=== PATIENT | female | born 1965 | race Caucasian/White ===

== ENCOUNTER 2018-05-05 19:18 | Emergency (ER) | payer OTHER ==
[~2018-05-05] VITALS: Ht 167.6 cm; Wt 82.1 kg
[~2018-05-05 19:18] MED LIST: BACTRIM DS TAB1 EACH PO; CLARITIN10 MG PO; LEVAQUIN 750 M750 MG PO; NOHOMEMEDICATIONS; NORCO 5-325 TA1 EACH PO
[2018-05-05] MEDS ORDERED: POLYMYXIN B/TMP10 ML OPHTHALMIC (19:48)
[2018-05-05 19:58] VITALS: BP 131/72
== END 2018-05-05 20:00 | disposition home or self-care (01) ==
LOC: M.ERS 19:18
DX: H01.001 Unspecified blepharitis right upper eyelid (principal); Z88.6 Allergy status to analgesic agent; Z88.0 Allergy status to penicillin

== ENCOUNTER 2018-06-06 21:32 | Emergency (ER) | payer OTHER ==
[~2018-06-06] VITALS: Ht 167.6 cm; Wt 83.0 kg
[~2018-06-06 21:32] MED LIST changes: +POLYMYXIN B/TMP10 ML OPHTHALMIC
[2018-06-06 22:08] LABS: ABSOLUTE EOSINOPHILS 0.1 thou/uL (0.0-0.7); ABSOLUTE LYMPHOCYTES 2.2 thou/uL (0.8-5.3); ABSOLUTE MONOCYTES 0.6 thou/uL (0.0-1.2); ABSOLUTE NEUTROPHILS 3.1 thou/uL (1.6-8.1); BASOPHILS 0.7 %; EOSINOPHILS 2.2 %; HEMATOCRIT 45.2 % (37.0-47.0); HEMOGLOBIN 15.3 gm/dL (12.0-15.0); LYMPHOCYTES 36.5 %; MCH 31.3 pg (26.0-34.0); MCHC 33.8 g/dL (28.0-37.0); MCV 92.4 fL (80.0-100.0); MONOCYTES 9.3 %; MPV 7.4 fl. (7.2-11.1); NUCLEATED RBCS 0 /100WBC; PLATELET COUNT* 218 thou/uL (150-400); POLYS 51.3 %; RBC 4.89 mil/uL (4.20-5.00); RDW-CV 13.5 % (10.5-14.5); WBC 6.1 thou/uL (4.0-11.0)
[2018-06-06 22:12] LABS: ANION GAP 8 mmol/L (7-16); BUN 14 mg/dL (7-18); CALCIUM 8.5 mg/dL (8.5-10.1); CHLORIDE 105 mmol/L (98-107); CO2 25 mmol/L (21-32); CREATININE 0.9 mg/dL (0.6-1.3); GLUCOSE 121 mg/dL (70-99); POTASSIUM 3.5 mmol/L (3.5-5.1); SODIUM 138 mmol/L (136-145)
[2018-06-06 22:19] LABS: ALBUMIN 3.4 g/dL (3.4-5.0); ALKALINE PHOSPHATASE 63 U/L (46-116); LIPASE 244 U/L (73-393); SGOT 17 U/L (15-37); SGPT 30 U/L (30-65); TOTAL BILIRUBIN 0.3 mg/dL (<0.1-1.0); TOTAL PROTEIN 7.4 g/dL (6.4-8.2); TROPONIN-I LEVEL <0.06 ng/mL (<0.06)
[2018-06-06 23:09] LABS: URINE BILIRUBIN NEGATIVE (Negative); URINE BLOOD NEGATIVE (Negative); URINE CLARITY CLEAR; URINE COLOR YELLOW; URINE GLUCOSE-RANDOM NEGATIVE (Negative); URINE KETONES NEGATIVE (Negative); URINE LEUKOCYTES-REFLEX NEGATIVE (Negative); URINE NITRITE-REFLEX NEGATIVE (Negative); URINE PROTEIN NEGATIVE (Negative); URINE SPECIFIC GRAVITY >= 1.030 (1.005-1.030); URINE UROBILINOGEN 0.2 E.U./dl (0.2-1.0)
[2018-06-06] MEDS ORDERED: ZOFRAN ODT4 MG PO (23:27)
[2018-06-06 23:39] VITALS: BP 147/66
--- NOTE | 2018-06-07 15:06 | EKG ---
[place] [address] ELECTROCARDIOGRAM REPORT Name: MAHENDRA SMILEY Room: [facility]#: [id number] Admission: 06/06/18 Attend Phys: Discharge: 06/06/18 Date of : 61 Report #: [id number] THIS REPORT FOR: //name// [facility] ED Test Date: 2018-06-06 Test Time: 22:08:35 Pat Name: MAHENDRA SMILEY Department: Room: Gender: F Movie Actor: FABY : 1965 Requested By: Raine Betancourt Order Number: [id number] MD: Gallito Polo Measurements Intervals Dix Rate: 81 P: 23 [place]: 139 QRS: -23 QRSD: 87 T: -5 QT: 404 QTc: 469 Interpretive Statements Sinus rhythm Left ventricular hypertrophy Borderline T abnormalities, inferior leads Compared to ECG 09/19/2016 19:42:42 T-wave abnormality now present Q waves no longer present Electronically Signed On 06-07-2018 15:05:54 CDT by Gallito Polo [email or web address] <ELECTRONICALLY SIGNED> By: Gallito Polo MD, [facility] 06/07/18 1505 07 07 Gallito Polo MD, [facility] /EPI
== END 2018-06-06 23:40 | disposition home or self-care (01) ==
LOC: M.ERS 21:32
PROVIDERS: Emergency Medicine
DX: R11.2 Nausea with vomiting, unspecified (principal); F17.210 Nicotine dependence, cigarettes, uncomplicated; Z88.0 Allergy status to penicillin; Z88.8 Allergy status to other drugs, medicaments and biological substances

== ENCOUNTER 2019-03-17 06:02 | Emergency (ER) | payer OTHER ==
[~2019-03-17] VITALS: Ht 167.6 cm; Wt 90.7 kg
[~2019-03-17 06:02] MED LIST changes: +ZOFRAN ODT4 MG PO
[2019-03-17 06:10] VITALS: BP 154/91
[2019-03-17] MEDS ORDERED: MEDROLDOSEPACK PO (06:44)
[2019-03-17] MEDS ORDERED: HYDROCODON-ACE1 EAC7 PO (06:44)
== END 2019-03-17 06:55 | disposition home or self-care (01) ==
LOC: M.ERS 06:02
DX: M25.551 Pain in right hip (principal); F17.210 Nicotine dependence, cigarettes, uncomplicated; Z98.890 Other specified postprocedural states; Z88.8 Allergy status to other drugs, medicaments and biological substances; Z88.0 Allergy status to penicillin

== ENCOUNTER 2019-06-19 20:25 | Emergency (ER) | payer OTHER ==
[~2019-06-19] VITALS: Ht 167.6 cm; Wt 90.7 kg
[~2019-06-19 20:25] MED LIST changes: +HYDROCODON-ACE1 EAC7 PO; +MEDROLDOSEPACK PO
[2019-06-19] MEDS ORDERED: ZPAK PO (20:51)
[2019-06-19] MEDS ORDERED: VENTOLIN HFA 1818 GM INH (20:51)
[2019-06-19] MEDS ORDERED: PREDNISONE50 MG PO (20:51)
[2019-06-19 21:29] VITALS: BP 151/78
== END 2019-06-19 21:30 | disposition home or self-care (01) ==
LOC: M.ERS 20:25
DX: R05 Cough (principal); F17.200 Nicotine dependence, unspecified, uncomplicated; Z88.6 Allergy status to analgesic agent; Z88.0 Allergy status to penicillin

== ENCOUNTER 2019-12-24 08:42 | Emergency (ER) | payer OTHER ==
[~2019-12-24] VITALS: Ht 167.6 cm; Wt 99.8 kg
[~2019-12-24 08:42] MED LIST changes: +PREDNISONE50 MG PO; +VENTOLIN HFA 1818 GM INH; +ZPAK PO
[2019-12-24 09:17] LABS: INFLUENZA A ANTIGEN Negative (Negative); INFLUENZA B ANTIGEN Negative (Negative)
[2019-12-24 09:47] VITALS: BP 158/101
== END 2019-12-24 09:48 | disposition home or self-care (01) ==
LOC: M.ERS 08:42
PROVIDERS: Family Medicine
DX: B34.9 Viral infection, unspecified (principal); R51 Headache; Z98.51 Tubal ligation status; Z88.0 Allergy status to penicillin; Z88.8 Allergy status to other drugs, medicaments and biological substances

== ENCOUNTER 2021-02-13 17:39 | Emergency (ER) | payer OTHER ==
[~2021-02-13] VITALS: Ht 167.6 cm; Wt 90.7 kg
[2021-02-13] MEDS ORDERED: CLARITIN10 MG PO (17:55)
[2021-02-13 18:55] VITALS: BP 148/102
== END 2021-02-13 18:56 | disposition home or self-care (01) ==
LOC: M.ERS 17:39
DX: H11.32 Conjunctival hemorrhage, left eye (principal); F17.210 Nicotine dependence, cigarettes, uncomplicated; Z98.51 Tubal ligation status; Z79.899 Other long term (current) drug therapy; Z88.8 Allergy status to other drugs, medicaments and biological substances; Z88.0 Allergy status to penicillin